=== PATIENT | male | born 1950 | race Caucasian/White ===

== ENCOUNTER 2017-04-23 11:14 | Day surgery (SDC) | payer OTHER ==
[~2017-04-23] VITALS: Ht 172.7 cm; Wt 83.9 kg
[~2017-04-23 11:14] MED LIST: ABILIFY10 MG PO; ALLEGRA ALLERG180 MG PO; BETA SITOSTEROL PO; FLONASE16 G1 BOTH NARES; LIPITOR80 MG PO; LO-DOSE ASPIRIN81 M1 PO; MICROZIDE12.5 M1 PO; NEXIUM40 MG PO; PRINIVIL10 MG PO; VITAMIN D31000 UNI2 PO; WELLBUTRIN XL300 MG PO
[2017-04-23 12:00] VITALS: BP 124/60
[2017-04-23 13:19] LABS: CHLORIDE 106 MEQ/L (99-109); GFR ESTIMATE (CALCULATED) > 59 mL/min/; GLUCOSE 140 mg/dL (70-99); POTASSIUM 4.1 MEQ/L (3.7-5.4); SAMPLE HEMOLYSIS CHECK 0; SAMPLE ICTERIC CHECK 0; SAMPLE LIPEMIA CHECK 0; SODIUM 143 MEQ/L (136-147); UREA NITROGEN (BUN) 16 mg/dL (9-23)
[2017-04-23 13:20] LABS: ANION GAP 7 MEQ/L (2-14)
[2017-04-23] MEDS ORDERED: NORCO 5/3251 TABLET PO (15:06)
[2017-04-23 15:38] VITALS: BP 125/76
[2017-04-23 16:31] VITALS: BP 138/72
[2017-04-23 17:10] VITALS: BP 144/71
== END 2017-04-23 17:11 | disposition home or self-care (01) ==
LOC: SDC 11:14
PROVIDERS: Surgery
PROC: 0YQ50ZZ Repair Right Inguinal Region, Open Approach (ICD-10-PCS; principal; 2017-04-23)
DX: K40.90 Unilateral inguinal hernia, without obstruction or gangrene, not specified as recurrent (principal); I25.10 Atherosclerotic heart disease of native coronary artery without angina pectoris; I10 Essential (primary) hypertension; E78.4 Other hyperlipidemia; K21.0 Gastro-esophageal reflux disease with esophagitis; E66.3 Overweight; Z68.29 Body mass index [BMI] 29.0-29.9, adult; Z95.5 Presence of coronary angioplasty implant and graft; Z87.891 Personal history of nicotine dependence; Z79.82 Long term (current) use of aspirin
CPT/HCPCS: 80048; C1781; J0690; J2250; J2405; J2704; J3010; S0020